=== PATIENT | male | born 1955 | race Caucasian/White ===

== ENCOUNTER 2023-08-30 04:43 | Inpatient (IN) | payer MEDICARE, BC ==
[~2023-08-30] VITALS: Ht 185.4 cm; Wt 78.0 kg
[2023-08-30] MEDS ORDERED: MORPHINE SULFATE INJ 2 MG/ML DISP.SYRIN ONE ×4 (05:07→10:21)
[2023-08-30] MEDS: IV NS 0.9% 1,000 ML BAG IV ONE (05:12)
[2023-08-30] MEDS: MORPHINE SULFATE INJ 2 MG/ML DISP.SYRIN IV ONE ×5 (05:13→10:37)
[2023-08-30 05:19] LABS: BASOPHILS # (AUTO) 0.1 K/uL (0.0-0.2); BASOPHILS % (AUTO) 0.3 % (0.0-2.0); EOSINOPHILS % (AUTO) 0.1 % (0.0-6.0); HEMATOCRIT 36 % (39-51); HEMOGLOBIN 12.1 g/dL (13.5-17.5); LYMPHOCYTES # (AUTO) 0.4 K/uL (0.8-4.8); LYMPHOCYTES % (AUTO) 1.2 % (20.0-44.0); MEAN CORPUSCULAR HEMOGLOBIN 35 PG (26.0-33.0); MEAN CORPUSCULAR HGB CONC 34 g/dl (31.0-36.0); MEAN CORPUSCULAR VOLUME 105 fL (80-96); MONOCYTES # (AUTO) 0.5 K/uL (0.1-1.30); MONOCYTES % (AUTO) 1.4 % (2.0-12.0); NEUTROPHILS # (AUTO) 34.2 K/uL (1.8-8.9); PLATELET COUNT (AUTO) 309 K/uL (150-450); RED BLOOD CELL COUNT(AUTO) 3.45 MIL/uL (4.5-6.0); RED CELL DISTRIBUTION WIDTH 15.8 % (11.5-15.0)
[2023-08-30 05:21] LABS: WHITE BLOOD COUNT (AUTO) 35.3 K/uL (4.3-11.0)
[2023-08-30 05:31] LABS: INR 1.17 (0.91-1.10); PARTIAL THROMBOPLASTIN TIME 31.1 SEC (24.3-34.3); PROTHROMBIN TIME 12.3 SECS (9.2-11.1)
[2023-08-30 05:32] LABS: ALBUMIN 4.2 g/dL (3.4-5.0); BILIRUBIN,DIRECT 0.3 mg/dL (0.0-0.2); CALCIUM, SERUM 8.9 mg/dL (8.5-10.1); CREATININE 1.6 mg/dL (0.6-1.3); POTASSIUM 4.5 mmol/L (3.5-5.1); TOTAL PROTEIN, SERUM 7.5 g/dL (6.4-8.2)
[2023-08-30] MEDS ORDERED: MORPHINE SULFATE INJ 4 MG/ML DISP.SYRIN ONE (06:06)
[2023-08-30] MEDS ORDERED: ONDANSETRON HCL/PF 4 MG/2 ML VIAL ONE (06:38)
[2023-08-30] MEDS: ONDANSETRON HCL/PF 4 MG/2 ML VIAL IVP ONE (06:46)
[2023-08-30] MEDS ORDERED: CETI10TA14 PO (07:53)
[2023-08-30] MEDS ORDERED: HYDR500C2 PO (07:53)
[2023-08-30] MEDS ORDERED: TRAZ150T75 PO (07:53)
[2023-08-30] MEDS ORDERED: OMEP20CA15 PO (07:53)
[2023-08-30] MEDS ORDERED: ZOLP10TA2 PO (07:53)
[2023-08-30] MEDS ORDERED: FINA1TAB11 PO (07:53)
[2023-08-30] MEDS ORDERED: MELO-107 PO (07:53)
[2023-08-30] MEDS ORDERED: MODAFINIL PO (07:53)
[2023-08-30] MEDS ORDERED: GEMTESA PO (07:53)
[2023-08-30] MEDS ORDERED: ASPI-1169 PO (07:53)
[2023-08-30] MEDS ORDERED: ROSU5TAB PO (07:53)
[2023-08-30] MEDS ORDERED: PIPERACI/TAZO 3.375GM/D5W 50ML PB IV ONE (08:34)
[2023-08-30] MEDS: PIPERACILLIN /TAZOBACTAM 3.375 G in IV D5W 50 ML IV ONE (08:42)
[2023-08-30] MEDS ORDERED: ONDANSETRON HCL/PF 4 MG/2 ML VIAL IVP PRN (09:30)
[2023-08-30] MEDS ORDERED: MORPHINE SULFATE INJ 2 MG/ML DISP.SYRIN IV PRN (09:30)
[2023-08-30] MEDS ORDERED: ACETAMINOPHEN 325 MG TABLET PO PRN (09:30)
[2023-08-30] MEDS ORDERED: MAG HYDROX/AL HYDROX/SIMETH 30 ML UDC PO PRN (09:30)
[2023-08-30 09:49] LABS: BASOPHILS % (MANUAL) 0 % (0.0-2.0); EOSINOPHILS % (MANUAL) 0 % (0-4); LYMPHOCYTES % (MANUAL) 4 % (16-48); MONOCYTES % (MANUAL) 3 % (0-11.0); NEUTROPHILS % (MANUAL) 93 (42-76)
[2023-08-30 09:50] LABS: ANISOCYTOSIS 1+; OVALOCYTES 1+; PLATELET ESTIMATE ADEQUATE; TEAR DROP CELLS 1+
[2023-08-30] MEDS: PANTOPRAZOLE 40 MG VIAL IV SCH (11:12)
[2023-08-30 11:49] VITALS: BP 141/83; TEMP 99.7
[2023-08-30] MEDS: HYDROMORPHONE 1 MG/1 ML DISP.SYRIN IV PRN ×2 (11:58→18:20)
[2023-08-30 12:15] VITALS: BP 141/83; TEMP 99.7; O2SAT 95
[2023-08-30] MEDS ORDERED: HYDR-4303 PO (14:29)
[2023-08-30] MEDS: HYDROMORPHONE 1 MG/1 ML DISP.SYRIN IV ONE ×2 (14:31→19:30)
[2023-08-30] MEDS ORDERED: ANESTHESIA TRAY IN PYXIS 1 EA TRAY MC ONE (14:50)
[2023-08-30] MEDS ORDERED: BUPIVACAINE 0.5 % PF 150 MG/30 ML VIAL ONE (14:51)
[2023-08-30] MEDS ORDERED: LIDOCAINE 1%-EPI 1:100,000 20 ML VIAL ONE (14:51)
[2023-08-30] MEDS: ZOSYN IVPB 3.375 G in IV D5W 50ml IV SCH (15:15)
[2023-08-30] MEDS: IV NS 0.9% 1,000 ML IV PRN (15:16)
[2023-08-30] MEDS ORDERED: IPRA42SP BNOSTRILS (15:50)
[2023-08-30] MEDS ORDERED: TRIA10.8 BNOSTRILS (15:50)
[2023-08-30] MEDS ORDERED: TADA20TA43 PO (15:50)
[2023-08-30] MEDS ORDERED: BENZ-13 PO (15:50)
[2023-08-30] MEDS ORDERED: ONDA8TAB65 PO (15:50)
[2023-08-30] MEDS ORDERED: ALBU18HF2 IH (15:50)
[2023-08-30] MEDS ORDERED: ZOLPIDEM TARTRATE 10 MG TABLET PO PRN (16:30)
[2023-08-30] MEDS ORDERED: IPRATROPIUM BROMIDE 0.06% 15 ML NASPR NS PRN (16:30)
[2023-08-30] MEDS ORDERED: OMEPRAZOLE 20 MG CAPSULE.DR PO SCH (16:30)
[2023-08-30] MEDS ORDERED: ALBUTEROL FS 2.5 MG/0.5 ML VIAL.NEB IH PRN (16:30)
[2023-08-30 17:11] VITALS: BP 120/68; TEMP 100; O2SAT 98
[2023-08-30] MEDS ORDERED: HYDROMORPHONE 1 MG/1 ML DISP.SYRIN IV PRN (18:10)
[2023-08-30] MEDS ORDERED: ROPIVACAINE HCL 0.5% 5 MG/ML 30ML VIAL ONE (18:57)
[2023-08-30] MEDS ORDERED: ROCURONIUM BROMIDE 50 MG/5 ML ONE (18:58)
[2023-08-30] MEDS ORDERED: FENTANYL PF 100MCG/2ML AMPUL ONE (18:58)
[2023-08-30] MEDS ORDERED: MIDAZOLAM HCL 2 MG/2ML VIAL ONE (18:58)
[2023-08-30] MEDS ORDERED: KETAMINE HCL (500MG/10ML) 50 MG/ML VIAL ONE (18:58)
[2023-08-30] MEDS ORDERED: FAMOTIDINE/PF INJ 20 MG/2 ML VIAL IV ONE (18:58)
[2023-08-30 21:18] VITALS: BP 127/73; TEMP 98.8; O2SAT 96
[2023-08-30] MEDS: ATORVASTATIN 10 MG TABLET PO SCH (22:00)
[2023-08-30] MEDS: TRAZODONE 50 MG TABLET PO SCH (22:00)
[2023-08-30] MEDS ORDERED: HYDROMORPHONE INJ 2 MG/ML DISP.SYRIN ONE (22:15)
[2023-08-30] MEDS ORDERED: BUPIVACAINE 0.25% 75 MG/30 ML VIAL ONE ×2 (22:52)
[2023-08-31 07:00] VITALS: BP 124/69; TEMP 99.9; O2SAT 98
[2023-08-31 07:26] LABS: BASOPHILS # (AUTO) 0.3 K/uL (0.0-0.2); BASOPHILS % (AUTO) 0.7 % (0.0-2.0); EOSINOPHILS # (AUTO) 0.1 K/uL (0.0-0.7); EOSINOPHILS % (AUTO) 0.2 % (0.0-6.0); HEMATOCRIT 34 % (39-51); HEMOGLOBIN 11.2 g/dL (13.5-17.5); LYMPHOCYTES # (AUTO) 0.5 K/uL (0.8-4.8); LYMPHOCYTES % (AUTO) 1.4 % (20.0-44.0); MEAN CORPUSCULAR HEMOGLOBIN 35 PG (26.0-33.0); MEAN CORPUSCULAR HGB CONC 33 g/dl (31.0-36.0); MEAN CORPUSCULAR VOLUME 105 fL (80-96); MONOCYTES # (AUTO) 0.7 K/uL (0.1-1.30); MONOCYTES % (AUTO) 1.9 % (2.0-12.0); NEUTROPHILS # (AUTO) 36.5 K/uL (1.8-8.9); NEUTROPHILS % (AUTO) 95.8 % (43.0-81.0); PLATELET COUNT (AUTO) 312 K/uL (150-450); RED BLOOD CELL COUNT(AUTO) 3.23 MIL/uL (4.5-6.0); RED CELL DISTRIBUTION WIDTH 16.1 % (11.5-15.0)
[2023-08-31 07:54] LABS: CALCIUM, SERUM 7.8 mg/dL (8.5-10.1); MAGNESIUM 1.8 mg/dL (1.8-2.4); PHOSPHORUS 4.5 mg/dL (2.5-4.9); POTASSIUM 4.6 mmol/L (3.5-5.1)
[2023-08-31 08:01] LABS: LACTIC ACID 1.1 mmol/L (0.4-2.0)
[2023-08-31] MEDS: cetrizine 10 MG TABLET PO SCH (08:27)
[2023-08-31] MEDS: HYDROXYUREA 500 MG CAPSULE PO SCH (08:27)
[2023-08-31] MEDS ORDERED: FINASTERIDE (5 MG) 5 MG TABLET PO SCH (09:00)
[2023-08-31] MEDS: IV NS 0.9% 1,000 ML IV PRN (11:03)
[2023-08-31 11:45] LABS: ANISOCYTOSIS 1+; BAND % (MANUAL) 2 % (0.0-5.0); BASOPHILS % (MANUAL) 0 % (0.0-2.0); EOSINOPHILS % (MANUAL) 0 % (0-4); LYMPHOCYTES % (MANUAL) 5 % (16-48); MONOCYTES % (MANUAL) 2 % (0-11.0); NEUTROPHILS % (MANUAL) 91 (42-76); OVALOCYTES 1+; PLATELET ESTIMATE ADEQUATE; STOMATOCYTES 1+; TEAR DROP CELLS 1+
[2023-08-31] MEDS: MENTHOL/CETYLPYRD (CEPACOL) 1 LOZ LOZENGE PO PRN (14:16)
[2023-08-31 16:00] VITALS: BP 145/72; TEMP 97.6; O2SAT 94
[2023-08-31 20:00] VITALS: BP 130/65; TEMP 98.6; O2SAT 95
[2023-08-31] MEDS: diphenhydrAMINE HCL 50 MG/ML VIAL IV PRN (20:36)
[2023-09-01 06:51] LABS: BASOPHILS # (AUTO) 0.1 K/uL (0.0-0.2); BASOPHILS % (AUTO) 0.2 % (0.0-2.0); EOSINOPHILS # (AUTO) 0.2 K/uL (0.0-0.7); EOSINOPHILS % (AUTO) 0.6 % (0.0-6.0); HEMATOCRIT 31 % (39-51); HEMOGLOBIN 10.3 g/dL (13.5-17.5); LYMPHOCYTES # (AUTO) 0.7 K/uL (0.8-4.8); LYMPHOCYTES % (AUTO) 2.6 % (20.0-44.0); MEAN CORPUSCULAR HEMOGLOBIN 36 PG (26.0-33.0); MEAN CORPUSCULAR HGB CONC 34 g/dl (31.0-36.0); MEAN CORPUSCULAR VOLUME 106 fL (80-96); MONOCYTES # (AUTO) 0.9 K/uL (0.1-1.30); MONOCYTES % (AUTO) 3.1 % (2.0-12.0); NEUTROPHILS # (AUTO) 25.7 K/uL (1.8-8.9); NEUTROPHILS % (AUTO) 93.5 % (43.0-81.0); PLATELET COUNT (AUTO) 287 K/uL (150-450); RED BLOOD CELL COUNT(AUTO) 2.89 MIL/uL (4.5-6.0); RED CELL DISTRIBUTION WIDTH 15.9 % (11.5-15.0); WHITE BLOOD COUNT (AUTO) 27.5 K/uL (4.3-11.0)
[2023-09-01 07:14] LABS: ALBUMIN 3.1 g/dL (3.4-5.0); CALCIUM, SERUM 7.9 mg/dL (8.5-10.1); CREATININE 1.5 mg/dL (0.6-1.3); PHOSPHORUS 2.7 mg/dL (2.5-4.9); POTASSIUM 4.6 mmol/L (3.5-5.1)
[2023-09-01] MEDS: HYDROXYUREA 500 MG CAPSULE PO SCH (09:00)
[2023-09-01 09:05] LABS: EOSINOPHILS % (MANUAL) 1 % (0-4); LYMPHOCYTES % (MANUAL) 1 % (16-48); MONOCYTES % (MANUAL) 2 % (0-11.0); NEUTROPHILS % (MANUAL) 96 (42-76)
[2023-09-01 09:06] LABS: ANISOCYTOSIS 1+; OVALOCYTES 1+; PLATELET ESTIMATE ADEQUATE; TEAR DROP CELLS 1+
[2023-09-01 09:40] VITALS: BP 139/80; TEMP 98.4; O2SAT 96
[2023-09-01] MEDS: HYDROMORPHONE 1 MG/1 ML DISP.SYRIN IV PRN ×2 (11:34→15:49)
[2023-09-01 16:00] VITALS: BP 112/74; TEMP 98.6; O2SAT 95
[2023-09-01 19:43] LABS: CREATININE, URINE 110.5 MG/DL (30.0-125.0); URINE TOTAL PROTEIN 95.2 mg/dL (0-11.9)
[2023-09-01 20:00] VITALS: BP 147/71; TEMP 98.8; O2SAT 100
[2023-09-02 07:03] LABS: BASOPHILS # (AUTO) 0.2 K/uL (0.0-0.2); BASOPHILS % (AUTO) 0.9 % (0.0-2.0); EOSINOPHILS # (AUTO) 0.2 K/uL (0.0-0.7); EOSINOPHILS % (AUTO) 0.9 % (0.0-6.0); HEMATOCRIT 28 % (39-51); HEMOGLOBIN 9.6 g/dL (13.5-17.5); LYMPHOCYTES # (AUTO) 0.6 K/uL (0.8-4.8); LYMPHOCYTES % (AUTO) 2.5 % (20.0-44.0); MEAN CORPUSCULAR HEMOGLOBIN 36 PG (26.0-33.0); MEAN CORPUSCULAR HGB CONC 34 g/dl (31.0-36.0); MEAN CORPUSCULAR VOLUME 105 fL (80-96); MONOCYTES # (AUTO) 0.9 K/uL (0.1-1.30); MONOCYTES % (AUTO) 3.3 % (2.0-12.0); NEUTROPHILS % (AUTO) 92.4 % (43.0-81.0); PLATELET COUNT (AUTO) 283 K/uL (150-450); RED BLOOD CELL COUNT(AUTO) 2.68 MIL/uL (4.5-6.0); RED CELL DISTRIBUTION WIDTH 15.6 % (11.5-15.0); WHITE BLOOD COUNT (AUTO) 25.9 K/uL (4.3-11.0)
[2023-09-02 07:34] LABS: CALCIUM, SERUM 8.1 mg/dL (8.5-10.1); CREATININE 1.4 mg/dL (0.6-1.3); MAGNESIUM 1.9 mg/dL (1.8-2.4); PHOSPHORUS 2.6 mg/dL (2.5-4.9); POTASSIUM 4.2 mmol/L (3.5-5.1)
[2023-09-02 08:00] VITALS: BP 154/66; TEMP 99.5; O2SAT 97
[2023-09-02] MEDS: PANTOPRAZOLE 40 MG TABLET.DR PO SCH (09:00)
[2023-09-02 09:24] VITALS: BP 154/66; TEMP 99.5; O2SAT 97
[2023-09-02 11:02] LABS: BAND % (MANUAL) 1 % (0.0-5.0); LYMPHOCYTES % (MANUAL) 1 % (16-48); MONOCYTES % (MANUAL) 6 % (0-11.0); NEUTROPHILS % (MANUAL) 92 (42-76)
[2023-09-02 11:05] LABS: ANISOCYTOSIS 1+; OVALOCYTES 1+; PLATELET ESTIMATE ADEQUATE
[2023-09-02] MEDS: PIPERACILLIN /TAZOBACTAM 3.375 G in IV D5W 100 ML IV SCH (12:42)
[2023-09-02] MEDS: LORAZEPAM INJ 2 MG/ML VIAL IV PRN (13:42)
[2023-09-02 16:00] VITALS: BP 142/78; TEMP 100.6; O2SAT 96
[2023-09-02 20:29] VITALS: BP 139/68; TEMP 99; O2SAT 98
[2023-09-02] MEDS: HALOPERIDOL LACTATE INJ 5 MG/ML VIAL IV ONE (22:27)
[2023-09-02] MEDS ORDERED: LORAZEPAM INJ 2 MG/ML VIAL IV ONE (23:30)
[2023-09-03] VITALS (7 sets, daily range): BP systolic 129–147; BP diastolic 74–85; TEMP 97.9–99.7; O2SAT 95–99
[2023-09-03 11:15] LABS: BASOPHILS # (AUTO) 0.2 K/uL (0.0-0.2); BASOPHILS % (AUTO) 0.6 % (0.0-2.0); EOSINOPHILS # (AUTO) 0.3 K/uL (0.0-0.7); EOSINOPHILS % (AUTO) 1.1 % (0.0-6.0); HEMATOCRIT 27 % (39-51); HEMOGLOBIN 9.4 g/dL (13.5-17.5); LYMPHOCYTES # (AUTO) 0.7 K/uL (0.8-4.8); LYMPHOCYTES % (AUTO) 2.3 % (20.0-44.0); MEAN CORPUSCULAR HEMOGLOBIN 36 PG (26.0-33.0); MEAN CORPUSCULAR HGB CONC 35 g/dl (31.0-36.0); MEAN CORPUSCULAR VOLUME 103 fL (80-96); MONOCYTES # (AUTO) 0.9 K/uL (0.1-1.30); MONOCYTES % (AUTO) 3.1 % (2.0-12.0); NEUTROPHILS # (AUTO) 26.1 K/uL (1.8-8.9); NEUTROPHILS % (AUTO) 92.9 % (43.0-81.0); PLATELET COUNT (AUTO) 298 K/uL (150-450); RED BLOOD CELL COUNT(AUTO) 2.62 MIL/uL (4.5-6.0); RED CELL DISTRIBUTION WIDTH 15.4 % (11.5-15.0); WHITE BLOOD COUNT (AUTO) 28.1 K/uL (4.3-11.0)
[2023-09-03 11:36] LABS: CALCIUM, SERUM 8.3 mg/dL (8.5-10.1); CREATININE 1.5 mg/dL (0.6-1.3); MAGNESIUM 1.6 mg/dL (1.8-2.4); POTASSIUM 3.8 mmol/L (3.5-5.1)
[2023-09-03] MEDS ORDERED: DIATR MEGLU/DIATRIZOATE SODIUM 120 ML BOTTLE (GASTROGRAPHIN) ONE ×2 (11:36→11:37)
[2023-09-03] MEDS: LORAZEPAM INJ 2 MG/ML VIAL IV PRN (12:47)
[2023-09-03] MEDS ORDERED: ZOLPIDEM TARTRATE 10 MG TABLET PO PRN (17:30)
[2023-09-03] MEDS: HYDROCODONE/APAP 5/325MG TABLET PO PRN (18:09)
[2023-09-04] VITALS: BP 130/60; TEMP 98; O2SAT 100
[2023-09-04] MEDS ORDERED: LORAZEPAM INJ 2 MG/ML VIAL IV PRN
[2023-09-04 02:10] LABS: PTH, INTACT 41 pg/mL (15-65)
[2023-09-04] MEDS: ZOLPIDEM TARTRATE 10 MG TABLET PO PRN (03:53)
[2023-09-04 04:00] VITALS: BP 130/74; TEMP 98; O2SAT 100
[2023-09-04 04:08] LABS: *SPE A/G RATIO 1.4 (0.7-1.7); *SPE ALBUMIN 3.4 g/dL (2.9-4.4); *SPE ALPHA-1-GLOBULIN 0.3 g/dL (0.0-0.4); *SPE ALPHA-2-GLOBULIN 0.7 g/dL (0.4-1.0); *SPE BETA GLOBULIN 0.6 g/dL (0.7-1.3); *SPE GLOBULIN, TOTAL 2.4 g/dL (2.2-3.9); *SPE M-SPIKE Not Observed g/dL (Not Observed); *SPE PROTEIN TOTAL 5.8 g/dL (6.0-8.5); *SPEGAMMA GLOBULIN 0.9 g/dL (0.4-1.8)
[2023-09-04 07:13] LABS: BASOPHILS # (AUTO) 0.2 K/uL (0.0-0.2); BASOPHILS % (AUTO) 0.7 % (0.0-2.0); EOSINOPHILS # (AUTO) 0.3 K/uL (0.0-0.7); EOSINOPHILS % (AUTO) 1.2 % (0.0-6.0); HEMATOCRIT 28 % (39-51); HEMOGLOBIN 9.5 g/dL (13.5-17.5); LYMPHOCYTES # (AUTO) 0.6 K/uL (0.8-4.8); LYMPHOCYTES % (AUTO) 2.3 % (20.0-44.0); MEAN CORPUSCULAR HEMOGLOBIN 35 PG (26.0-33.0); MEAN CORPUSCULAR HGB CONC 34 g/dl (31.0-36.0); MEAN CORPUSCULAR VOLUME 104 fL (80-96); MONOCYTES # (AUTO) 0.7 K/uL (0.1-1.30); MONOCYTES % (AUTO) 2.6 % (2.0-12.0); NEUTROPHILS # (AUTO) 25.8 K/uL (1.8-8.9); NEUTROPHILS % (AUTO) 93.2 % (43.0-81.0); PLATELET COUNT (AUTO) 300 K/uL (150-450); RED BLOOD CELL COUNT(AUTO) 2.73 MIL/uL (4.5-6.0); RED CELL DISTRIBUTION WIDTH 15.6 % (11.5-15.0); WHITE BLOOD COUNT (AUTO) 27.6 K/uL (4.3-11.0)
[2023-09-04 07:30] VITALS: BP 129/79; TEMP 98.1; O2SAT 97
[2023-09-04 07:35] LABS: CALCIUM, SERUM 8.6 mg/dL (8.5-10.1); CREATININE 1.3 mg/dL (0.6-1.3); MAGNESIUM 1.6 mg/dL (1.8-2.4); PHOSPHORUS 3.3 mg/dL (2.5-4.9); POTASSIUM 3.5 mmol/L (3.5-5.1)
[2023-09-04 08:58] LABS: BAND % (MANUAL) 1 % (0.0-5.0); LYMPHOCYTES % (MANUAL) 1 % (16-48); MONOCYTES % (MANUAL) 4 % (0-11.0); NEUTROPHILS % (MANUAL) 94 (42-76)
[2023-09-04 08:59] LABS: PLATELET ESTIMATE ADEQUATE
[2023-09-04 09:00] LABS: ANISOCYTOSIS 1+; OVALOCYTES 1+
[2023-09-04] MEDS: MAGNESIUM OXIDE 400 MG TABLET PO ONE (10:46)
[2023-09-04] MEDS ORDERED: METR500T PO (10:47)
[2023-09-04] MEDS ORDERED: CIPR500T5 PO (10:47)
== END 2023-09-04 17:29 | disposition home health service (06) | DRG 853 ==
LOC: ER 04:52 → MED 10:39 → TELE 09-02 22:45
PROVIDERS: ADMIT Nurse Practitioner Acute Care; ATTEND Nurse Practitioner Acute Care
PROC: 0DN80ZZ Release Small Intestine, Open Approach (ICD-10-PCS; principal; 2023-08-30)
PROC: 0WJG4ZZ Inspection of Peritoneal Cavity, Percutaneous Endoscopic Approach (ICD-10-PCS; 2023-08-30)
PROC: 0DNU0ZZ Release Omentum, Open Approach (ICD-10-PCS; 2023-08-30)
PROC: 0WQF0ZZ Repair Abdominal Wall, Open Approach (ICD-10-PCS; 2023-08-30)
PROC: 0WJF4ZZ Inspection of Abdominal Wall, Percutaneous Endoscopic Approach (ICD-10-PCS; 2023-08-30)
DX: A41.9 Sepsis, unspecified organism (principal); K66.1 Hemoperitoneum; N17.0 Acute kidney failure with tubular necrosis; K43.0 Incisional hernia with obstruction, without gangrene; K56.50 Intestinal adhesions [bands], unspecified as to partial versus complete obstruction; R18.8 Other ascites; K57.92 Diverticulitis of intestine, part unspecified, without perforation or abscess without bleeding; R16.1 Splenomegaly, not elsewhere classified; D45 Polycythemia vera; G89.29 Other chronic pain; Z79.82 Long term (current) use of aspirin; Z93.3 Colostomy status; Z90.49 Acquired absence of other specified parts of digestive tract; D72.829 Elevated white blood cell count, unspecified; D53.1 Other megaloblastic anemias, not elsewhere classified; M89.8X9 Other specified disorders of bone, unspecified site; Z53.31 Laparoscopic surgical procedure converted to open procedure
CPT/HCPCS: 36415; 71045-TC; 74250-TC; 76770-TC; 80048-TC; 80053-TC; 80076-TC; 82550-TC; 82570-TC; 83605-TC; 83690-TC; 83735-TC; 83970; 84100-TC; 84155; 84165; 84300-TC; 85025-TC; 85730-TC; 94799-TC; A4223; A6209; C9113; G0378; J0690; J1100; J1170; J1200; J1630; J2060; J2250; J2270; J2405; J2543; J2704; J2765; J2795; J3010; J3490; J7030; J7040; J7042; J7060; Q9963